=== PATIENT | male | born 1980 | race Caucasian/White ===

== ENCOUNTER 2016-12-10 20:39 | Emergency (ER) | payer MEDICARE, OTHER ==
[2016-12-10 22:28] LABS: BASO % 0.3 % (0.2-1.2); EOS # 0.4 10_X3_uL (0.0-0.5); EOS % 3.4 % (0.8-7.0); GRAN # 7.8 10_X3_uL (1.8-5.4); GRAN % 70.1 % (34.0-67.9); HEMATOCRIT 34.2 % (40-51); HEMOGLOBIN 11.6 g/dL (13.7-17.5); LYMPH # 2.3 10_X3_uL (1.3-3.6); MEAN CORPUSCULAR HEMOGLOBIN 27.6 pg (27.0-33.0); MEAN CORPUSCULAR HGB CONC 33.9 g/dL (32.0-36.0); MEAN CORPUSCULAR VOLUME 81.2 fL (79-92); MEAN PLATELET VOLUME 8.9 fl (7.5-11.5); MONO # 0.6 10_X3_uL (0.3-0.8); MONO % 5.2 % (5.3-12.2); PLATELET COUNT 359 x10_3/uL (163-337); RED BLOOD COUNT 4.21 x10_6/uL (4.6-6.1); RED CELL DISTRIBUTION WIDTH 15.1 % (11.6-14.4); WHITE BLOOD COUNT 11.1 x10_3/uL (4.2-9.1)
[2016-12-10 22:37] LABS: BLOOD UREA NITROGEN 8 mg/dL (7-18); CALCIUM 8.4 mg/dL (8.7-10.7); CARBON DIOXIDE 23 mmol/L (21-32); CREATININE 0.5 mg/dL (0.6-1.3); GLUCOSE,RANDOM 309 mg/dL (70-99); POTASSIUM 3.8 mmol/L (3.5-5.1); SODIUM 136 mmol/L (136-145)
== END 2016-12-10 23:21 | disposition home or self-care (01) ==
LOC: ER 20:39
PROVIDERS: Emergency Medicine
DX: E11.622 Type 2 diabetes mellitus with other skin ulcer (principal); L97.529 Non-pressure chronic ulcer of other part of left foot with unspecified severity; F17.210 Nicotine dependence, cigarettes, uncomplicated; Z79.4 Long term (current) use of insulin; Z88.5 Allergy status to narcotic agent
CPT/HCPCS: 36415; 73610; 73630; 80048; 85025; 96372; 99070; 99283; 99283-25

== ENCOUNTER 2017-02-21 14:32 | Emergency (ER) | payer MEDICARE, OTHER ==
[2017-02-21 15:35] LABS: ALBUMIN 2.6 gm/dL (3.4-5.0); ALKALINE PHOSPHATASE 136 U/L (50-136); ALT/SGPT 11 U/L (7.53-40.17); AST/SGOT 19 U/L (6.66-35.34); BILIRUBIN,TOTAL 0.96 mg/dL (0.0-1.0); BLOOD UREA NITROGEN 14 mg/dL (7-18); CALCIUM 11.4 mg/dL (8.7-10.7); CARBON DIOXIDE 16 mmol/L (21-32); CREATININE 0.7 mg/dL (0.6-1.3); POTASSIUM 3.3 mmol/L (3.5-5.1); TOTAL PROTEIN 8.4 gm/dL (6.4-8.2)
[2017-02-21 15:45] LABS: GLUCOSE,RANDOM 538 mg/dL (70-99); SODIUM 115 mmol/L (136-145)
[2017-02-21 15:46] LABS: ARTERIAL BLD GAS O2 SATURATION 97.5 % (94-98); ARTERIAL BLOOD GAS BASE EXCESS -7.3 mmol/L (-2.0-3.0); ARTERIAL BLOOD GAS HCO3 14.9 mmol/L (22-26); ARTERIAL BLOOD GAS PCO2 21.3 mmHg (35-48); ARTERIAL BLOOD GAS pH 7.46 (7.35-7.45)
[2017-02-21 15:52] LABS: BASO % 0.3 % (0.2-1.2); EOS # 0.1 10_X3_uL (0.0-0.5); EOS % 0.5 % (0.8-7.0); GRAN # 10.7 10_X3_uL (1.8-5.4); GRAN % 84.7 % (34.0-67.9); HEMATOCRIT 30.7 % (40-51); HEMOGLOBIN 10.9 g/dL (13.7-17.5); LYMPH % 7.7 % (21.8-53.1); MEAN CORPUSCULAR HEMOGLOBIN 26.1 pg (27.0-33.0); MEAN CORPUSCULAR HGB CONC 35.5 g/dL (32.0-36.0); MEAN CORPUSCULAR VOLUME 73.6 fL (79-92); MEAN PLATELET VOLUME 9.3 fl (7.5-11.5); MONO # 0.9 10_X3_uL (0.3-0.8); MONO % 6.8 % (5.3-12.2); PLATELET COUNT 333 x10_3/uL (163-337); RED BLOOD COUNT 4.17 x10_6/uL (4.6-6.1); RED CELL DISTRIBUTION WIDTH 14.1 % (11.6-14.4); WHITE BLOOD COUNT 12.7 x10_3/uL (4.2-9.1)
[2017-02-21 19:13] LABS: BLOOD UREA NITROGEN 12 mg/dL (7-18); CALCIUM 10.4 mg/dL (8.7-10.7); CARBON DIOXIDE 15 mmol/L (21-32); CREATININE 0.6 mg/dL (0.6-1.3); GLUCOSE,RANDOM 352 mg/dL (70-99)
[2017-02-21 19:21] LABS: POTASSIUM 2.9 mmol/L (3.5-5.1); SODIUM 118 mmol/L (136-145)
[2017-02-21 22:42] LABS: BLOOD UREA NITROGEN 10 mg/dL (7-18); CALCIUM 10.1 mg/dL (8.7-10.7); CARBON DIOXIDE 16 mmol/L (21-32); CREATININE 0.6 mg/dL (0.6-1.3); GLUCOSE,RANDOM 325 mg/dL (70-99); POTASSIUM 3.8 mmol/L (3.5-5.1)
[2017-02-21 22:52] LABS: SODIUM 120 mmol/L (136-145)
== END 2017-02-21 23:45 | disposition short-term general hospital (02) ==
LOC: ER 14:32
PROVIDERS: Emergency Medicine
DX: E11.621 Type 2 diabetes mellitus with foot ulcer (principal); M86.171 Other acute osteomyelitis, right ankle and foot; R53.83 Other fatigue; Z89.612 Acquired absence of left leg above knee; Z79.4 Long term (current) use of insulin; Z79.899 Other long term (current) drug therapy; Z88.5 Allergy status to narcotic agent; Z88.8 Allergy status to other drugs, medicaments and biological substances
CPT/HCPCS: 36415; 36600; 73700; 80048; 80053; 82009; 82803; 82962; 83036; 83605; 85025; 87040; 87186; 96361; 96365; 96375; 99070; 99284; 99285-25; J3370; J7050